=== PATIENT | male | born 1980 | race Caucasian/White ===

== ENCOUNTER 2017-05-17 18:06 | Emergency (ER) | payer OTHER ==
[2017-05-17 18:16] VITALS: BP 156/83; PULSE 123; RESP 20; TEMP 98; O2SAT 98
--- NOTE | 2017-05-17 19:47 | ED PDOC ---
HPI: Psych/Substance Abuse Time Seen by Provider: 05/17/17 19:23 Chief Complaint (Nursing): Substance Abuse Chief Complaint (Provider): Substance abuse History Per: Patient History/Exam Limitations: no limitations Onset/Duration Of Symptoms: Hrs (today) Current Symptoms Are (Timing): Still Present Suicide/Self Injury Attempted (Context): None Associated Symptoms: denies: Suicidal Thoughts, Suicidal Plan Involuntary Hold By: None Additional Complaint(s): Miles Zimmerman is a 36 year old male, with no significant past medical history, who was brought to the emergency department via EMS for substance abuse onset today. Patient denies any medical complaints and admits to using marijuana earlier today. Patient was made to come to the hospital by police. He denies any suicidal or homicidal ideation, no visual or auditory hallucinations. No further medical complaints. PMD: None provided. Past Medical History Reviewed: Historical Data, Nursing Documentation, Vital Signs Vital Signs: Last Vital Signs Temp 98.0 F 05/17/17 18:13 Pulse 123 H 05/17/17 18:13 Resp 20 05/17/17 18:13 BP 156/83 H 05/17/17 18:13 Pulse Ox 98 05/17/17 18:13 - Medical History PMH: No Chronic Diseases - Surgical History Surgical History: No Surg Hx - Family History Family History: States: Unknown Family Hx - Social History Current smoker - smoking cessation education provided: Yes (light smoker <10 cigarettes daily) Alcohol: Social Drugs: Cannabis - Allergies Allergies/Adverse Reactions: Allergies Allergy/AdvReac Type Severity Reaction Status Date / Time Unobtainable Allergy Verified 05/17/17 18:13 Review of Systems ROS Statement: Except As Marked, All Systems Reviewed And Found Negative Psych: Negative for: Suicidal ideation (or homicidal ideation), Other (visual or auditory hallucinations. ) Physical Exam - Reviewed Nursing Documentation Reviewed: Yes Vital Signs Reviewed: Yes - Physical Exam Appears: Positive for: Well, Non-toxic, No Acute Distress Head Exam: Positive for: ATRAUMATIC, NORMAL INSPECTION, NORMOCEPHALIC Skin: Positive for: Normal Color, Warm, Dry Eye Exam: Positive for: Normal appearance Neck: Positive for: Painless ROM Cardiovascular/Chest: Positive for: Regular Rate, Rhythm. Negative for: Murmur Respiratory: Positive for: Normal Breath Sounds. Negative for: Respiratory Distress Extremity: Positive for: Normal ROM. Negative for: Deformity, Swelling Neurologic/Psych: Positive for: Alert, Oriented (x3), Gait (steady), Other ( afluent speech). Negative for: Motor/Sensory Deficits - ECG O2 Sat by Pulse Oximetry: 98 (RA) Pulse Ox Interpretation: Normal Medical Decision Making Medical Decision Making: Initial Impression: substance abuse Initial Plan: -Patient is declining detox services or referrals. -Patient is medically stable, and requires no further treatment in the ED at this time. Patient is stable for discharge home. Diagnosis substance abuse. Scribe Attestation: Documented by Mil Roman, acting as a scribe for Deandre Conroy MD Provider Scribe Attestation: All medical record entries made by the Scribe were at my direction and personally dictated by me. I have reviewed the chart and agree that the record accurately reflects my personal performance of the history, physical exam, medical decision making, and the department course for this patient. I have also personally directed, reviewed, and agree with the discharge instructions and disposition. Disposition - Clinical Impression Clinical Impression: Substance abuse - Disposition Disposition: Routine/Home Disposition Time: 20:00 Condition: STABLE Forms: [employer] (Malay)
== END 2017-05-17 20:12 | disposition home or self-care (01) ==
LOC: H.ER 18:06
DX: F12.10 Cannabis abuse, uncomplicated (principal); F17.210 Nicotine dependence, cigarettes, uncomplicated